=== PATIENT | male | born 1995 | race African-American/Black ===

== ENCOUNTER 2016-07-21 11:55 | Emergency (ER) | payer MEDICAID, OTHER ==
[~2016-07-21] VITALS: Ht 175.3 cm; Wt 52.0 kg
[2016-07-21 11:55] VITALS: BP 130/63; PULSE 91; RESP 14; TEMP 98.2; O2SAT 99
--- NOTE | 2016-07-21 12:05 | PD ---
Physical Exam Date Seen by Provider: July 21, 2016 Time Seen by Provider: 12:02 Narrative 20 y/o male here with Diarrhea, Abdominal cramps and SHIELDS since this am. + Nausea , but no vomiting. Patient reports father recently ill with similar complaints 2 days ago. SHIELDS 08/09. Normal Urine currently. V/S Stable Awaiting Bed Placement. Data Data Last Documented VS Vital Signs Date Time Temp Pulse Resp B/P Pulse Ox O2 Delivery O2 Flow Rate FiO2 07/21/16 11:55 98.2 91 14 130/63 99 MDM Medical Record Reviewed: Yes Supervised Visit with IVORY: Yes Scripts No Active Prescriptions or Reported Meds Condition: Stable Yobany Patel July 21, 2016 12:05
[2016-07-21] MEDS ORDERED: SODIUM CHLOR 0.9% 1000 ML INJ 1,000 ML IV SCH (12:39)
--- NOTE | 2016-07-21 12:44 | PD ---
HPI Chief Complaint: GI Complaint Time Seen by Provider: 12:39 Travel History International Travel<30 days: No Contact w/Intl Traveler<30days: No Traveled to known affect area: No History of Present Illness HPI 20-year-old male presents to the emergency department for evaluation of diarrhea that began this morning. The patient states that this morning he woke up and has had 5 episodes of loose watery stool. States that his bowel movements have been brown, no black or bloody stools. States that he has had abdominal cramping intermittently that is relieved by having a bowel movement. States he had some nausea this morning with no vomiting. Denies fever, chills, chest pain, shortness of breath, cough or cold symptoms. Denies any abdominal surgeries. Denies any recent travel. Denies any recent antibiotic use. States that his father whom he lives with had similar symptoms 2 days ago but has since gotten better. No other complaints. PFSH Past Medical History Medical History: Denies Significant Hx Diabetes: No Tetanus Vaccination: > 5 Years ?: Not Past Surgical History Surgical History: No Previous Surgery Social History Alcohol Use: No Tobacco Use: Yes Substance Use: Yes ([facility]) Allergies-Medications (Allergen,Severity, Reaction): Coded Allergies: No Known Allergies (Unverified , 10/23/15) Reported Meds & Prescriptions Reported Meds & Active Scripts Active No Active Prescriptions or Reported Medications Review of Systems Except as stated in HPI: all other systems reviewed are Neg Physical Exam Narrative GENERAL: Well-nourished and well-developed pleasant patient in no acute distress who is nontoxic appearing. SKIN: Warm and dry. HEAD: Normocephalic and atraumatic. EYES: No injection, drainage, or hyphema noted. PERRLA. EOMI. ENT: No nasal drainage noted. Oropharynx is clear. NECK: Supple and the trachea is midline. CARDIOVASCULAR: Regular rate and rhythm. RESPIRATORY: Breath sounds are equal bilaterally with no accessory muscle use, wheezing, rhonchi, or crackles. GASTROINTESTINAL: Abdomen is soft, non-tender, and nondistended. Negative McBurney's point. Negative Díaz's sign. No rebound tenderness or guarding. MUSCULOSKELETAL: No obvious deformities, swelling, cyanosis, or ecchymosis is present throughout the upper and lower extremities. Patient has full range of motion without any signs of neurovascular compromise. NEUROLOGICAL: Awake, alert, and oriented. Normal speech and gait. Cranial nerves are grossly intact. Data Data Last Documented VS Vital Signs Date Time Temp Pulse Resp B/P Pulse Ox O2 Delivery O2 Flow Rate FiO2 07/21/16 11:55 98.2 91 14 130/63 99 Orders Complete Blood Count With Diff (07/21/16 12:39) Comprehensive Metabolic Panel (07/21/16 12:39) Lipase (07/21/16 12:39) Iv Access Insert/Monitor (07/21/16 12:39) Ecg Monitoring (07/21/16 12:39) Oximetry (07/21/16 12:39) Ondansetron Inj (Zofran Inj) (07/21/16 12:45) Sodium Chlor 0.9% 1000 Ml Inj (Ns 1000 M (07/21/16 12:39) Sodium Chloride 0.9% Flush (Ns Flush) (07/21/16 12:45) Labs Laboratory Tests Test 07/21/16 12:55 White Blood Count 4.3 TH/MM3 Red Blood Count 4.90 MIL/MM3 Hemoglobin 13.1 GM/DL Hematocrit 40.2 % Mean Corpuscular Volume 82.2 FL Mean Corpuscular Hemoglobin 26.8 PG Mean Corpuscular Hemoglobin 32.6 % Concent Red Cell Distribution Width 13.9 % Platelet Count 256 TH/MM3 Mean Platelet Volume 7.5 FL Neutrophils (%) (Auto) 53.7 % Lymphocytes (%) (Auto) 30.0 % Monocytes (%) (Auto) 15.1 % Eosinophils (%) (Auto) 0.8 % Basophils (%) (Auto) 0.4 % Neutrophils # (Auto) 2.3 TH/MM3 Lymphocytes # (Auto) 1.3 TH/MM3 Monocytes # (Auto) 0.7 TH/MM3 Eosinophils # (Auto) 0.0 TH/MM3 Basophils # (Auto) 0.0 TH/MM3 CBC Comment DIFF FINAL Differential Comment Sodium Level 140 MEQ/L Potassium Level 4.3 MEQ/L Chloride Level 106 MEQ/L Carbon Dioxide Level 28.7 MEQ/L Anion Gap 5 MEQ/L Blood Urea Nitrogen 10 MG/DL Creatinine 0.87 MG/DL Estimat Glomerular Filtration 137 ML/MIN Rate Random Glucose 114 MG/DL Calcium Level 8.6 MG/DL Total Bilirubin 0.3 MG/DL Aspartate Amino Transf 15 U/L (AST/SGOT) Alanine Aminotransferase 17 U/L (ALT/SGPT) Alkaline Phosphatase 53 U/L Total Protein 6.9 GM/DL Albumin 3.6 GM/DL Lipase 115 U/L [facility] Medical Decision Making Medical Screen Exam Complete: Yes Emergency Medical Condition: Yes Differential Diagnosis Gastroenteritis versus dehydration versus electrolyte abnormality versus enteritis Narrative Course 20-year-old male presents to the emergency department for evaluation of diarrhea with nausea and abdominal cramping for 1 day. Patient is afebrile, vital signs are stable. Abdominal examination is benign. IV access is obtained , labs have been drawn and sent. Patient is given IV fluids and Zofran. CBC is unremarkable. CMP is unremarkable. Lipase is normal. Patient has remained stable and without complaint while here in the emergency department. This is likely viral in etiology. Discussed supportive care with the patient. He is stable for discharge to home. Diagnosis Primary Impression: Diarrhea Qualified Code: R19.7 - Diarrhea, unspecified type Patient Instructions: Acute Diarrhea (ED), General Instructions Additional Instructions: Rest. Drink plenty of fluids. Follow-up with your Primary Care Physician as needed. Return to the ED for any acute worsening of symptoms. Med/Other Pt SpecificInfo: No Change to Meds Scripts No Active Prescriptions or Reported Meds Disposition: 01 DISCHARGE HOME Condition: Stable Rody Stanford July 21, 2016 12:44
[2016-07-21] MEDS ORDERED: ONDANSETRON HCL 4 MG/2 ML VIAL IVP ONE (12:45)
[2016-07-21] MEDS ORDERED: SODIUM CHLORIDE 0.9% FLUSH 10 ML FLUSH IV FLUSH PRN (12:45)
[2016-07-21 13:09] LABS: AUTOMATED NEUTROPHIL # 2.3 TH/MM3 (1.8-7.7); BASOPHIL % 0.4 % (0.0-2.0); EOSINOPHIL % 0.8 % (0.0-4.0); HEMATOCRIT 40.2 % (39.0-51.0); HEMO FLAGS DIFF FINAL; LYMPHOCYTE # 1.3 TH/MM3 (1.0-4.8); MEAN CELL VOLUME 82.2 FL (80.0-100.0); MEAN CORPUSCULAR HEMOGLOBIN 26.8 PG (27.0-34.0); MEAN CORPUSCULAR HGB CONC 32.6 % (32.0-36.0); MONO % 15.1 % (0.0-8.0); NEUT % 53.7 % (16.0-70.0); PLATELET COUNT 256 TH/MM3 (150-450); RED CELL DISTRIBUTION WIDTH 13.9 % (11.6-17.2); WHITE BLOOD COUNT 4.3 TH/MM3 (4.0-11.0)
[2016-07-21 13:30] LABS: ANION GAP 5 MEQ/L (5-15); AST (GOT) 15 U/L (15-39); BICARBONATE 28.7 MEQ/L (21.0-32.0); BLOOD UREA NITROGEN 10 MG/DL (7-18); CHLORIDE 106 MEQ/L (98-107); GLOMERULAR FILTRATION RATE 137 ML/MIN (>89); POTASSIUM 4.3 MEQ/L (3.5-5.1); SODIUM (NA) 140 MEQ/L (136-145)
[2016-07-21 13:34] LABS: ALKALINE PHOSPHATASE 53 U/L (45-117); ALT (GPT) 17 U/L (9-52); TOTAL BILIRUBIN ADULT 0.3 MG/DL (0.2-1.0)
== END 2016-07-21 13:54 | disposition home or self-care (01) ==
LOC: NEPD 11:55
DX: R19.7 Diarrhea, unspecified (principal); R51 Headache; R11.0 Nausea; Z72.0 Tobacco use
CPT/HCPCS: 80053; 83690; 85025; 96374; 99284; J2405; J7030

== ENCOUNTER 2016-08-21 15:33 | Emergency (ER) | payer MEDICAID ==
[~2016-08-21] VITALS: Ht 172.7 cm; Wt 57.8 kg
[2016-08-21 15:39] VITALS: BP 110/67; PULSE 82; RESP 20; TEMP 98.2; O2SAT 99
[2016-08-21] MEDS ORDERED: SODIUM CHLOR 0.9% 1000 ML INJ 1,000 ML IV SCH (16:01)
[2016-08-21] MEDS ORDERED: PANTOPRAZOLE SODIUM 40 MG VIAL IVP ONE (16:15)
[2016-08-21] MEDS ORDERED: ONDANSETRON HCL 4 MG/2 ML VIAL IVP ONE (16:15)
[2016-08-21 16:25] VITALS: O2SAT 98
[2016-08-21 16:32] VITALS: BP 114/68; PULSE 81; RESP 18; O2SAT 100
[2016-08-21 16:51] LABS: AUTOMATED NEUTROPHIL # 3.8 TH/MM3 (1.8-7.7); BASOPHIL % 0.8 % (0.0-2.0); CHLORIDE 106 MEQ/L (98-107); EOSINOPHIL # 0.1 TH/MM3 (0-0.4); EOSINOPHIL % 1.1 % (0.0-4.0); HEMATOCRIT 39.8 % (39.0-51.0); HEMO FLAGS DIFF FINAL; LYMPH % 24.4 % (9.0-44.0); LYMPHOCYTE # 1.5 TH/MM3 (1.0-4.8); MEAN CORPUSCULAR HEMOGLOBIN 26.9 PG (27.0-34.0); MEAN CORPUSCULAR HGB CONC 32.8 % (32.0-36.0); MONO % 12.2 % (0.0-8.0); NEUT % 61.5 % (16.0-70.0); PLATELET COUNT 313 TH/MM3 (150-450); POTASSIUM 3.5 MEQ/L (3.5-5.1); RED BLOOD COUNT 4.85 MIL/MM3 (4.50-5.90); RED CELL DISTRIBUTION WIDTH 12.6 % (11.6-17.2); SODIUM (NA) 143 MEQ/L (136-145); WHITE BLOOD COUNT 6.2 TH/MM3 (4.0-11.0)
[2016-08-21 16:55] LABS: ANION GAP 7 MEQ/L (5-15); BICARBONATE 30.4 MEQ/L (21.0-32.0)
[2016-08-21 16:56] LABS: BLOOD UREA NITROGEN 12 MG/DL (7-18)
[2016-08-21 16:58] LABS: ALT (GPT) 16 U/L (9-52); AST (GOT) 13 U/L (15-39)
[2016-08-21 16:59] LABS: GLOMERULAR FILTRATION RATE 169 ML/MIN (>89)
--- NOTE | 2016-08-21 16:59 | PD ---
HPI Chief Complaint: Abdominal Pain Time Seen by Provider: 15:57 Travel History International Travel<30 days: No Contact w/Intl Traveler<30days: No Traveled to known affect area: No History of Present Illness HPI 21-year-old male complains of abdominal cramping with nausea vomiting. Patient states that the symptoms started this morning. Patient denies any headache. Patient denies any chest pain or shortness of breath. Patient states the pain in cramping pain diffuse over the abdomen. Patient states the pain is worse or epigastric area. Patient denies any pain radiation. Patient denies any dysuria or frequency. Patient denies any fever chills. Patient denies any back pain. PFSH Past Medical History Diabetes: No Social History Alcohol Use: No Tobacco Use: Yes Substance Use: Yes ([facility]) Allergies-Medications (Allergen,Severity, Reaction): Coded Allergies: No Known Allergies (Unverified , 08/21/16) Reported Meds & Prescriptions Reported Meds & Active Scripts Active No Active Prescriptions or Reported Medications Review of Systems General / Constitutional: No: Fever Eyes: No: Visual changes HENT: No: Headaches Cardiovascular: No: Chest Pain or Discomfort Respiratory: No: Shortness of Breath Gastrointestinal: Positive: Nausea, Vomiting, Abdominal Pain Genitourinary: No: Dysuria Musculoskeletal: No: Pain Skin: No Rash Neurologic: No: Weakness Psychiatric: No: Depression Endocrine: No: Polydipsia Hematologic/Lymphatic: No: Easy Bruising Physical Exam Narrative GENERAL: Well-nourished, well-developed patient. SKIN: Focused skin assessment warm/dry. HEAD: Normocephalic. EYES: No scleral icterus. No injection or drainage. NECK: Supple, trachea midline. No JVD or lymphadenopathy. CARDIOVASCULAR: Regular rate and rhythm without murmurs, gallops, or rubs. RESPIRATORY: Breath sounds equal bilaterally. No accessory muscle use. GASTROINTESTINAL: Abdomen soft, nondistended. Patient has mild diffuse tenderness over the epigastric area. No rebound tenderness. No mass. MUSCULOSKELETAL: No cyanosis, or edema. BACK: Nontender without obvious deformity. No CVA tenderness. Neurologic exam normal. Data Data Last Documented VS Vital Signs Date Time Temp Pulse Resp B/P Pulse Ox O2 Delivery O2 Flow Rate FiO2 08/21/16 17:31 82 20 119/66 99 08/21/16 15:39 98.2 Orders Complete Blood Count With Diff (08/21/16 16:01) Comprehensive Metabolic Panel (08/21/16 16:01) Lipase (08/21/16 16:01) Urinalysis - C+S If Indicated (08/21/16 16:01) Iv Access Insert/Monitor (08/21/16 16:01) Ecg Monitoring (08/21/16 16:01) Oximetry (08/21/16 16:01) Ondansetron Inj (Zofran Inj) (08/21/16 16:15) Pantoprazole Inj (Protonix Inj) (08/21/16 16:15) Sodium Chlor 0.9% 1000 Ml Inj (Ns 1000 M (08/21/16 16:01) Labs Laboratory Tests Test 08/21/16 16:20 White Blood Count 6.2 TH/MM3 Red Blood Count 4.85 MIL/MM3 Hemoglobin 13.1 GM/DL Hematocrit 39.8 % Mean Corpuscular Volume 82.0 FL Mean Corpuscular Hemoglobin 26.9 PG Mean Corpuscular Hemoglobin 32.8 % Concent Red Cell Distribution Width 12.6 % Platelet Count 313 TH/MM3 Mean Platelet Volume 7.3 FL Neutrophils (%) (Auto) 61.5 % Lymphocytes (%) (Auto) 24.4 % Monocytes (%) (Auto) 12.2 % Eosinophils (%) (Auto) 1.1 % Basophils (%) (Auto) 0.8 % Neutrophils # (Auto) 3.8 TH/MM3 Lymphocytes # (Auto) 1.5 TH/MM3 Monocytes # (Auto) 0.8 TH/MM3 Eosinophils # (Auto) 0.1 TH/MM3 Basophils # (Auto) 0.0 TH/MM3 CBC Comment DIFF FINAL Differential Comment Sodium Level 143 MEQ/L Potassium Level 3.5 MEQ/L Chloride Level 106 MEQ/L Carbon Dioxide Level 30.4 MEQ/L Anion Gap 7 MEQ/L Blood Urea Nitrogen 12 MG/DL Creatinine 0.72 MG/DL Estimat Glomerular Filtration 169 ML/MIN Rate Random Glucose 103 MG/DL Calcium Level 8.8 MG/DL Total Bilirubin 0.3 MG/DL Aspartate Amino Transf 13 U/L (AST/SGOT) Alanine Aminotransferase 16 U/L (ALT/SGPT) Alkaline Phosphatase 57 U/L Total Protein 7.2 GM/DL Albumin 3.2 GM/DL Lipase 137 U/L MDM Medical Decision Making Medical Screen Exam Complete: Yes Emergency Medical Condition: Yes Interpretation(s) 1740 p.m. CBC within normal limit. CMP within normal limit. Differential Diagnosis Differential diagnosis including gastritis, PUD, pink otitis, cholecystitis, colitis, UTI, pyelonephritis, appendicitis. Narrative Course 21-year-old male with epigastric abdominal pain, nausea vomiting. Normal saline solution 1 L IV bolus. Zofran 4 mg IV. Diagnosis Primary Impression: Gastroenteritis Patient Instructions: General Instructions Additional Instructions: Clear fluids tonight and advance diet tomorrow. Take medications as needed. Follow-up with personal physician. Return if persistent problem or worse. Med/Other Pt SpecificInfo: Prescription(s) given Scripts Dicyclomine (Bentyl)10 Mg Cap10 Mg PO TID PRN (PAIN SCALE 1 TO 10) #15 CAP Ref 0 Prov:Rj Rincon MD 08/21/16 Ondansetron Odt (Zofran Odt)4 Mg Tab4 Mg SL Q6HR PRN (Nausea/Vomiting) #10 TAB Prov:Rj Rincon MD 08/21/16 Disposition: 01 DISCHARGE HOME Condition: Stable Rj Rincon MD Aug 21, 2016 16:59
[2016-08-21 17:00] LABS: TOTAL BILIRUBIN ADULT 0.3 MG/DL (0.2-1.0)
[2016-08-21 17:01] LABS: ALKALINE PHOSPHATASE 57 U/L (45-117)
[2016-08-21 17:31] VITALS: BP 119/66; PULSE 82; RESP 20; O2SAT 99
[2016-08-21 17:32] LABS: BLOOD, URINE NEG (NEG); GLUCOSE,URINE NEG (NEG); KETONE, URINE NEG (NEG); NITRITE,URINE NEG (NEG); PH, URINE 6.5 (5.0-8.5)
[2016-08-21 17:43] LABS: URINE COLOR YELLOW (YELLW/STRAW)
[2016-08-21 17:44] LABS: COMMENT (UR) CULT NOT INDICATED; CULTURE IF INDICATED CULT NOT INDICATED; SQUAMOUS EPITHELIAL CELL URINE 0-5 /hpf (0-5)
[2016-08-21] MEDS ORDERED: DICY10 PO (17:50)
[2016-08-21] MEDS ORDERED: ZOFR4TAB3 SL (17:50)
== END 2016-08-21 17:59 | disposition home or self-care (01) ==
LOC: PHED 15:33
DX: K52.9 Noninfective gastroenteritis and colitis, unspecified (principal); Z72.0 Tobacco use
CPT/HCPCS: 80053; 81001; 83690; 85025; 96361; 96374; 96375; 99284; C9113; J2405; J7030

== ENCOUNTER 2016-10-10 09:22 | Emergency (ER) | payer MEDICAID ==
[~2016-10-10] VITALS: Ht 175.3 cm; Wt 52.0 kg
[~2016-10-10 09:22] MED LIST: DICY10 PO; ZOFR4TAB3 SL
[2016-10-10 09:32] VITALS: BP 109/65; PULSE 84; RESP 16; TEMP 99.1
[2016-10-10] MEDS ORDERED: ZOFR4TAB3 SL (09:40)
[2016-10-10] MEDS ORDERED: DICY10 PO (09:40)
--- NOTE | 2016-10-10 09:40 | PD ---
HPI Chief Complaint: Abdominal Pain Time Seen by Provider: 09:27 Travel History International Travel<30 days: No Contact w/Intl Traveler<30days: No Traveled to known affect area: No History of Present Illness HPI This is a 21-year-old male who presents to the emergency department with nausea , vomiting and diarrhea that started yesterday after he ate some chicken that he thought was questionable. He says he vomited once yesterday and then felt better and didn't think much of it but today he's had 3 loose stools and his stomach is hurting, constant, moderate severity, crampy. This is his third presentation for this in several months. He does smoke marijuana frequently. He's never had abdominal surgery. He denies any fevers or chills. PFSH Past Medical History Diabetes: No Social History Alcohol Use: No Tobacco Use: Yes Substance Use: Yes ([facility]) Allergies-Medications (Allergen,Severity, Reaction): Coded Allergies: No Known Allergies (Unverified , 08/21/16) Reported Meds & Prescriptions Reported Meds & Active Scripts Active Bentyl (Dicyclomine HCl) 10 Mg Cap 10 Mg PO TID PRN Zofran Odt (Ondansetron Odt) 4 Mg Tab 4 Mg SL Q6HR PRN Review of Systems Except as stated in HPI: all other systems reviewed are Neg Physical Exam Narrative GENERAL:Well appearing, no acute distress SKIN: Focused skin assessment warm and dry. HEAD: Atraumatic. Normocephalic. EYES: Pupils equal and round. No injection or drainage. ENT: Moist mucous membranes NECK: Trachea midline. CARDIOVASCULAR: Regular rate and rhythm. No murmur appreciated. RESPIRATORY: Clear to auscultation. Breath sounds equal bilaterally. GASTROINTESTINAL: Abdomen soft, mildly tender to palpation diffusely with no rebound or guarding. MUSCULOSKELETAL: No obvious deformities. NEUROLOGICAL: Awake and alert. No obvious cranial nerve deficits. Moving all extremities. PSYCHIATRIC: Appropriate mood and affect; insight and judgment normal. Data Data Last Documented VS Vital Signs Date Time Temp Pulse Resp B/P Pulse Ox O2 Delivery O2 Flow Rate FiO2 10/10/16 09:35 16 10/10/16 09:32 99.1 84 109/65 [facility] Medical Decision Making Medical Screen Exam Complete: Yes Emergency Medical Condition: Yes Interpretation(s) Temperature is 99.1, no tachycardia, normotensive Differential Diagnosis Cannabis hyperemesis syndrome, gastroenteritis, irritable bowel syndrome, Crohn' s disease Narrative Course This is a 21-year-old male who presents the emergency department with vomiting, diarrhea and abdominal discomfort. This is his third presentation for this in several months to the emergency department. He appears very well and has a benign abdomen. He's had labs done twice before which have been reassuring. I don't think he requires any additional diagnostics at this time. He really requires follow-up with a subspecialist. I think he is really here for a note for work. I suspect some of his symptoms may be related to his marijuana use. I counseled him on this and he seemed appreciative. Patient will be discharged home with symptomatic management. Diagnosis Primary Impression: Abdominal pain Qualified Code: R10.9 - Abdominal pain, unspecified abdominal location Referrals: [facility] Patient Instructions: General Instructions Departure Forms: Tests/Procedures, Work Release Enter return to work date: Oct 13, 2016 Additional Instructions: If you develop severe or worsening abdominal pain, fever>100.4, persistent vomiting or inability to eat or drink return to the emergency department immediately. Med/Other Pt SpecificInfo: Prescription(s) given Scripts Ondansetron Odt (Zofran Odt)4 Mg Tab4 Mg SL Q6HR PRN (Nausea/Vomiting) #10 TAB Ref 0 Prov:Daniela Vargas MD 10/10/16 Dicyclomine (Bentyl)10 Mg Cap10 Mg PO TID PRN (Bowel Management) #15 CAP Ref 0 Prov:Daniela Vargas MD 10/10/16 Disposition: 01 DISCHARGE HOME Condition: Stable Daniela Vargas MD Oct 10, 2016 09:40
== END 2016-10-10 10:13 | disposition home or self-care (01) ==
LOC: PHED 09:22
DX: R10.9 Unspecified abdominal pain (principal)
CPT/HCPCS: 99284

== ENCOUNTER 2017-04-30 03:20 | Emergency (ER) | payer OTHER, MEDICAID ==
[~2017-04-30] VITALS: Ht 175.3 cm; Wt 110.5 kg
[2017-04-30 03:24] VITALS: BP 130/61; PULSE 91; RESP 18; TEMP 98.6; O2SAT 100
--- NOTE | 2017-04-30 04:27 | PD ---
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 The patient states he did not feel the muscles at that time but later on felt pain in the paraspinous musculature of the right thorax. He denies any shortness of breath, fever or radiation of pain. PFSH Past Medical History Medical History: Denies Significant Hx Diabetes: No Tetanus Vaccination: Unknown Influenza Vaccination: No Past Surgical History Surgical History: No Previous Surgery Social History Alcohol Use: No Tobacco Use: Yes (03/07 PPD) Substance Use: Yes ([facility]ana) Allergies-Medications (Allergen,Severity, Reaction): Coded Allergies: No Known Allergies (Unverified Adverse Reaction, Unknown, 04/30/17) Reported Meds & Prescriptions Reported Meds & Active Scripts Active Review of Systems Except as stated in HPI: all other systems reviewed are Neg Physical Exam Narrative GENERAL: Well-nourished, well-developed patient in slight apparent distress with his right paraspinous muscle pain in the thorax. His vital signs are normal. SKIN: Focused skin assessment warm/dry. HEAD: Normocephalic. EYES: No scleral icterus. No injection or drainage. NECK: Supple, trachea midline. No JVD or lymphadenopathy. CARDIOVASCULAR: Regular rate and rhythm without murmurs, gallops, or rubs. RESPIRATORY: Breath sounds equal bilaterally. No accessory muscle use. GASTROINTESTINAL: Abdomen soft, non-tender, nondistended. MUSCULOSKELETAL: No cyanosis, or edema. I can completely reproduce the patient' s pain by pressing on the musculature of the right thorax. There is no spinal tenderness or deformity whatsoever. BACK: Nontender without obvious deformity. No CVA tenderness. Data Data Last Documented VS Vital Signs Date Time Temp Pulse Resp B/P (MAP) Pulse Ox O2 Delivery O2 Flow Rate FiO2 04/30/17 03:24 98.6 91 18 130/61 (84) 100 MDM Medical Decision Making Medical Screen Exam Complete: Yes Emergency Medical Condition: Yes Medical Record Reviewed: Yes Differential Diagnosis Paraspinous muscle strain, thoracic strain Narrative Course The patient has a right paraspinous muscle strain of the back. It is in the thoracic area. Plan: Patient will use a heating pad on its lowest setting and was given ibuprofen and Flexeril. He is given a 5 day work excuse. Diagnosis Primary Impression: Strain of thoracic paraspinal muscles excluding T1 and T2 levels Additional Instructions: As we discussed, a heating pad is helpful. Interpose a towel between her skin and the pad to avoid delgado. Follow-up with a primary care physician next week. Med/Other Pt SpecificInfo: Prescription(s) given Scripts Cyclobenzaprine (Flexeril) 10 Mg Tab 10 MG PO TID for Muscle Spasm, #45 TAB 0 Refills Prov: Collins Pathak MD 04/30/17 Ibuprofen (Ibuprofen) 600 Mg Tab 600 MG PO TID, #44 TAB 0 Refills Prov: Collins Pathak MD 04/30/17 Disposition: 01 DISCHARGE HOME Condition: Stable Collins Pathak MD Apr 30, 2017 04:27
[2017-04-30] MEDS ORDERED: IBUP-232 PO (04:38)
[2017-04-30] MEDS ORDERED: CYCL10TA PO (04:38)
[2017-04-30] MEDS ORDERED: KETOROLAC TROMETHAMINE 60 MG/2 ML (IM) VIAL IM ONE (05:00)
[2017-04-30] MEDS ORDERED: ORPHENADRINE INJ 60 MG/2 ML AMP IM ONE (05:00)
== END 2017-04-30 05:35 | disposition home or self-care (01) ==
LOC: PHED 03:20
DX: S29.012A Strain of muscle and tendon of back wall of thorax, initial encounter (principal); F17.210 Nicotine dependence, cigarettes, uncomplicated; X50.0XXA Overexertion from strenuous movement or load, initial encounter; Y92.511 Restaurant or cafe as the place of occurrence of the external cause; Y99.0 Civilian activity done for income or pay
CPT/HCPCS: 96372; 99283; J1885; J2360